=== PATIENT | female | born 1960 | race Caucasian/White ===

== ENCOUNTER 2021-10-16 15:02 | Emergency (ER) | payer OTHER, MEDICARE ==
[~2021-10-16 15:02] MED LIST: ABILIFY5 MG PO; AMIODARONE HCL400 MG PO; ASPIRIN CHEWABL81 MG PO; ASPIRIN325 MG PO; BACLOFEN 10MG T10 MG PO; BREO ELLIPTA 11 EACH INH; BUSPIRONE HCL15 MG PO; CARTIA XT120 MG PO; CLARITIN10 MG PO; COMBIVENT RESPIM4 GM INH; COZAAR50 MG PO; CYMBALTA 30MG C30 MG PO; ELAVIL25 MG PO; ELIQUIS5 MG PO; HCTZ12.5 MG PO; HYDROCODON-ACE1 EAC2 PO; HYDROXYZINE PAM50 M1 PO; HYZAAR 50-12.51 EACH PO; INVOKANA100 MG PO; K-DUR20 MEQ PO; KLONOPIN0.5 MG PO; LIPITOR 10MG TA10 MG PO; LORAZEPAM 0.5M0.5 MG PO; LOVENOX40 MG/0.4 SQ; LYRICA 50MG CAP50 MG PO; METFORMIN HCL500 M2 PO; METFORMIN HCL500 MG PO; PERCOCET 7.5/321 TAB PO; PREVACID30 M1 PO; PRILOSEC20 MG PO; SPIRIVA18 MCG INH; VITAMIN D1000 UNI1 PO
[2021-10-16] MEDS ORDERED: BACLOFEN 10MG T10 MG PO (16:58)
== END 2021-10-16 17:15 | disposition home or self-care (01) ==
LOC: FER 15:02
DX: M54.50 Low back pain, unspecified (principal); M54.2 Cervicalgia; E11.9 Type 2 diabetes mellitus without complications; J44.9 Chronic obstructive pulmonary disease, unspecified; Z87.891 Personal history of nicotine dependence; Z88.8 Allergy status to other drugs, medicaments and biological substances; V43.62XA Car passenger injured in collision with other type car in traffic accident, initial encounter; Y92.481 Parking lot as the place of occurrence of the external cause
CPT/HCPCS: 72125; 72131; J1885

== ENCOUNTER 2021-11-05 11:39 | Emergency (ER) | payer OTHER, MEDICARE ==
[2021-11-05] MEDS ORDERED: CYCLOBENZAPRINE10 MG PO (14:18)
== END 2021-11-05 15:50 | disposition home or self-care (01) ==
LOC: FER 11:39
DX: S16.1XXA Strain of muscle, fascia and tendon at neck level, initial encounter (principal); S39.012A Strain of muscle, fascia and tendon of lower back, initial encounter; E11.9 Type 2 diabetes mellitus without complications; J44.9 Chronic obstructive pulmonary disease, unspecified; Z88.8 Allergy status to other drugs, medicaments and biological substances; V43.12XA Car passenger injured in collision with other type car in nontraffic accident, initial encounter; Y92.481 Parking lot as the place of occurrence of the external cause; Z28.310 Unvaccinated for COVID-19
CPT/HCPCS: 72125; 72131; J1885

== ENCOUNTER 2022-02-03 17:17 | Emergency (ER) | payer OTHER, MEDICARE ==
[~2022-02-03 17:17] MED LIST changes: +CYCLOBENZAPRINE10 MG PO
[2022-02-03] MEDS ORDERED: CYCLOBENZAPRINE10 MG PO (19:55)
== END 2022-02-03 20:17 | disposition home or self-care (01) ==
LOC: FER 17:17
DX: G89.29 Other chronic pain (principal); M54.6 Pain in thoracic spine; M54.2 Cervicalgia; E11.9 Type 2 diabetes mellitus without complications; J44.9 Chronic obstructive pulmonary disease, unspecified; I48.91 Unspecified atrial fibrillation; Z79.82 Long term (current) use of aspirin; Z79.899 Other long term (current) drug therapy; Z28.310 Unvaccinated for COVID-19
CPT/HCPCS: 96372; J1100; J1885